=== PATIENT | male | born 1980 | race Caucasian/White ===

== ENCOUNTER → 2016-11-22 | Outpatient (REF) | LOC: COL.CARD 14:17 | DX: R07.89 Other chest pain (principal) ==

== ENCOUNTER 2023-07-15 21:46 | Observation (INO) | payer BC ==
[~2023-07-15] VITALS: Ht 172.7 cm; Wt 92.0 kg
[2023-07-15 22:20] LABS: BASO # 0.1 K/mm3 (0.0-0.2); BASO % 0.3 % (0.0-2.0); GRAN % 84.5 % (42.2-75.2); HEMATOCRIT 49.9 % (42.0-52.0); LYMPH # 2.2 K/mm3 (1.2-3.4); LYMPH % 11.1 % (20.0-51.0); MEAN CELL VOLUME 92 fl (80.0-100.0); MEAN CORPUSCULAR HEMOGLOBIN 31 pg (27-31); MEAN CORPUSCULAR HGB CONC 34 g/dl (33.0-37.0); MEAN PLATELET VOLUME 10.8 fl (7.4-10.4); MONO # 0.8 K/mm3 (0.1-0.6); MONO % 3.7 % (1.7-9.3); PLATELET COUNT 251 K/mm3 (130-400); RED BLOOD COUNT 5.45 M/mm3 (4.20-5.60); REDCELL DISTRIBUTION WIDTH-CV 13.2 % (11.5-14.5)
[2023-07-15 22:35] LABS: COLLECTION METHOD CLEAN CATCH
[2023-07-15 22:36] LABS: ALANINE AMINOTRANSFERASE 54 U/L (0-55); ALBUMIN 4.5 gm/dL (3.5-5.0); ALKALINE PHOSPHATASE 90 U/L (40-150); ANION GAP 15 mmol/L (7-16); AST,SGOT 25 U/L (5-34); BILIRUBIN,TOTAL 0.4 mg/dL (0.2-1.2); BLOOD UREA NITROGEN 19 mg/dL (9-21); C-REACTIVE PROTEIN 0.23 mg/dL (0.00-0.50); CALCIUM 9.9 mg/dL (8.4-10.2); CARBON DIOXIDE 24 mmol/L (22-29); CHLORIDE 103 mmol/L (98-107); CREATININE, serum 1.47 mg/dL (0.72-1.25); GLUCOSE 170 mg/dL (70-99); LIPASE 15 U/L (8-78); POTASSIUM 3.6 mmol/L (3.5-4.5); SODIUM 142 mmol/L (136-145); TOTAL PROTEIN 8.4 gm/dL (6.2-8.1)
[2023-07-15 22:41] LABS: URINE APPEARANCE Clear (CLEAR/HAZY); URINE COLOR Yellow (YELLOW); URINE GLUCOSE Negative (NEGATIVE); URINE PROTEIN(semi-quant) 3+ (NEGATIVE)
[2023-07-15 22:42] LABS: TROPONIN-I < 0.010 ng/mL (0.00-0.033)
[2023-07-15 22:42] LABS: URINE BLOOD 2+ (NEGATIVE); URINE KETONE Negative (NEGATIVE); URINE NITRATE Negative (NEGATIVE); URINE UROBILINOGEN 0.2 E.U/dL (0.2-1.0)
[2023-07-15 23:00] LABS: AMORPHOUS CRYSTAL Present (NOT PRESENT); URINE BACTERIA Moderate /hpf (NONE SEEN); URINE CALCIUM OXALATE CRYSTAL Present (NOT PRESENT)
[2023-07-15] MEDS ORDERED: PRILOSEC 20MG20 MG PO (23:55)
--- NOTE | 2023-07-16 00:30 | NUR ---
PT admitted to room 330 from ED per WC, alert and oriented, ambulating without assist, on RA. pt reports pain resolved with meds given in ED. IVF started @ 125 cc/hr as ordered. pt NPO, oriented pt to room, floor and poc. all questions answered.
[2023-07-16 00:56] VITALS: BP 134/79; PULSE 68; TEMP 97.6
[2023-07-16 03:36] VITALS: BP 118/66; PULSE 75; TEMP 98.1
--- NOTE | 2023-07-16 05:56 | NUR ---
pt has slept since arrival to floor, no c/o pain or discomfort, IVF infusing per PIV @ 125 cc/hr. has been getting up to restroom ad xiang.
--- NOTE | 2023-07-16 07:15 | NUR ---
Shift report received from the night nurseXochitl RN.
[2023-07-16 07:47] VITALS: BP 122/59; PULSE 77; TEMP 98.3
--- NOTE | 2023-07-16 08:54 | NUR ---
Patient laying in bed awake upon entry room. Assessment completed, patient denies of pain at epigastric area, and all 4 quadrant in the abdomen. IVF NS infusing without difficulty. Patient reminded of NPO status and verbalized understanding. Call peña in reach.
[2023-07-16 11:33] LABS: BASO % 0.2 % (0.0-2.0); EOS % 0.2 % (0.0-4.0); GRAN # 8.3 K/mm3 (1.4-6.5); GRAN % 67.6 % (42.2-75.2); LYMPH # 3.1 K/mm3 (1.2-3.4); LYMPH % 25.1 % (20.0-51.0); MEAN CELL VOLUME 92 fl (80.0-100.0); MEAN CORPUSCULAR HEMOGLOBIN 31 pg (27-31); MEAN CORPUSCULAR HGB CONC 34 g/dl (33.0-37.0); MEAN PLATELET VOLUME 10.9 fl (7.4-10.4); MONO # 0.8 K/mm3 (0.1-0.6); MONO % 6.6 % (1.7-9.3); PLATELET COUNT 217 K/mm3 (130-400); RED BLOOD COUNT 4.69 M/mm3 (4.20-5.60); REDCELL DISTRIBUTION WIDTH-CV 13.2 % (11.5-14.5)
[2023-07-16 11:40] LABS: HEMOGLOBIN 14.5 g/dl (13.5-18.0)
[2023-07-16 11:51] LABS: ALBUMIN 3.6 gm/dL (3.5-5.0); BILIRUBIN,TOTAL 0.6 mg/dL (0.2-1.2); CALCIUM 8.7 mg/dL (8.4-10.2); CREATININE, serum 1.32 mg/dL (0.72-1.25); POTASSIUM 3.9 mmol/L (3.5-4.5); TOTAL PROTEIN 6.6 gm/dL (6.2-8.1)
[2023-07-16] MEDS ORDERED: NORCO 325 MG-51 TAB PO (12:03)
[2023-07-16] MEDS ORDERED: AMOXICILLIN 8751 TAB PO (12:03)
[2023-07-16] MEDS ORDERED: ZOFRAN ODT4 MG PO (12:04)
[2023-07-16 12:15] VITALS: BP 132/91; PULSE 78; TEMP 98.2
[2023-07-16 13:00] VITALS: BP_SYST 132
--- NOTE | 2023-07-16 15:35 | NUR ---
SW met with patient to conduct care management assessment and discuss discharge planning. Patient's spouse (Reagan Plata [phone]) was present during this time. Patient informed SW that his PCP is Dr Mello and Pharmacy of choice is [facility]. Patient reports that he is independent with ADL's and does not utilize any DME's at this time. Patient reports that he does have a DPOA and spouse is assigned as his healthcare representative but does not have copy of file with hospital at this time. Patient is excepting to discharge to his home pending medical recommedations.
--- NOTE | 2023-07-16 15:49 | NUR ---
Patient ate low fat lunch well with no issues of n/v, Dr. Fatima notified and finalized discharge orders. INT discontinued, education and instruction given. Patient has no other issues or concern. Patient escorted out of the unit accompanied by family member to the ED entrance at 1540.
== END 2023-07-16 15:40 | disposition home or self-care (01) ==
LOC: COL.ER 21:46 → SURG 23:27
PROVIDERS: Nurse Practitioner Primary Care; ADMIT Surgery
DX: K81.0 Acute cholecystitis (principal)
CPT/HCPCS: G0378; J1885; J2270; J2405; J2543; J7030; Q9967